=== PATIENT | female | born 1980 | race Caucasian/White ===

== ENCOUNTER 2024-02-09 12:12 | Inpatient (IN) | payer MEDICARE, OTHER ==
[2024-02-09 15:19] VITALS: BMI 31.8
[2024-02-09] MEDS ORDERED: NALOXONE (NARCAN) HCL 4 MG/0.1 ML SPRAY NS PRN (15:45)
[2024-02-09] MEDS ORDERED: MAGNESIUM HYDROX 2400MG/30ML ORAL SUSPENSION 30 ML CUP PO PRN (15:45)
[2024-02-09] MEDS ORDERED: DOCUSATE SODIUM 100 MG CAPSULE (FP) PO PRN (15:45)
[2024-02-09] MEDS ORDERED: BENZOCAINE/MENTHOL (CHLORASEPTIC ) LOZENGE MM PRN (15:45)
[2024-02-09] MEDS ORDERED: P-EPHED 60MG/TRIPROLIDI 2.5MG TABLET PO PRN (15:45)
[2024-02-09] MEDS ORDERED: BENZONATATE 200 MG CAPSULE PO PRN (15:45)
[2024-02-09] MEDS ORDERED: guaiFENesin 600 MG TABLET.ER (FP) PO PRN (15:45)
[2024-02-09] MEDS ORDERED: LOPERAMIDE HCL 2 MG CAPSULE PO PRN (15:45)
[2024-02-09] MEDS ORDERED: BISACODYL 5 MG TABLET.DR (FP) PO PRN (15:45)
[2024-02-09] MEDS ORDERED: NALOXONE HCL 0.4 MG/ML VIAL IM PRN (15:45)
[2024-02-09] MEDS ORDERED: POLYETHYLENE GLYCOL (HEALTHYLAX) 3350 17 GM PACKET PO PRN (15:45)
[2024-02-09] MEDS ORDERED: TUBERCULIN PPD 5 TU/0.1ML VIAL ID ONE (20:32)
[2024-02-09] MEDS: TUBERCULIN PPD 5 TU/0.1ML SYRINGE (IN PATIENT USE ONLY) ID ONE (22:38)
[2024-02-09] MEDS: MELATONIN 5 MG TABLETS PO SCH (22:40)
[2024-02-09] MEDS: traZODone HCL 50 MG TABLET (FP) PO ONE (22:41)
[2024-02-09] MEDS: QUEtiapine FUMARATE 200 MG TABLET PO ONE (22:41)
[2024-02-09] MEDS: THIAMINE 100 MG TABLET PO SCH (22:41)
[2024-02-09] MEDS: risperiDONE 1 MG TABLET PO ONE (22:41)
[2024-02-09] MEDS: levETIRAcetam 500 MG TABLET (FP) PO SCH (22:41)
[2024-02-09] MEDS: GABAPENTIN 300 MG CAPSULE PO ONE (22:43)
[2024-02-10] MEDS: IBUPROFEN 600 MG TABLET (FP) PO PRN (06:42)
[2024-02-10] MEDS: QUEtiapine FUMARATE 200 MG TABLET PO SCH (10:12)
[2024-02-10] MEDS: PRENATAL VITAMINS W/ FOLIC ACID TABLET (FP) PO SCH (10:13)
[2024-02-10 11:35] LABS: EPI CELLS >36 /uL (0-25.1); HYALINE CASTS 1 /uL (0-3.1); URINE APPEARANCE CLEAR; URINE BACTERIA 480 /uL (0-1359); URINE BILIRUBIN NEGATIVE (NEGATIVE); URINE COLOR YELLOW; URINE GLUCOSE (UA) NEGATIVE (NEGATIVE); URINE KETONE NEGATIVE (NEGATIVE); URINE LEUK ESTERASE 1+ (NEGATIVE); URINE NITRITE NEGATIVE (NEGATIVE); URINE PROTEIN NEGATIVE (NEGATIVE); URINE RBC 5 /uL (0-23.9); URINE UROBILINOGEN 0.2 mg/dL (0.2-1.0); URINE WBC 38 /uL (0-25.8)
[2024-02-10 11:37] LABS: HEMATOCRIT 38.1 % (32.4-45.2); HEMOGLOBIN 12.7 GM/dL (10.7-15.3); MCH 29.9 pg (25.7-33.7); MCHC 33.4 g/dl (32.0-36.0); MEAN CELL VOLUME 89.5 fl (80-96); MEAN PLT VOLUME 8.3 fl (7.5-11.1); PLATELET COUNT 236 10^3/uL (134-434); RBC 4.25 M/mm3 (3.60-5.2); RDW 15.3 % (11.6-15.6); WHITE BLOOD COUNT 4.6 K/mm3 (4.0-10.0)
[2024-02-10 11:38] LABS: POTASSIUM 4.5 mmol/L (3.5-5.1)
[2024-02-10 11:40] LABS: ALBUMIN 3.4 g/dl (3.4-5.0)
[2024-02-10 11:41] LABS: BLOOD UREA NITROGEN 14.1 mg/dL (7-18)
[2024-02-10 11:44] LABS: CREATININE 0.4 mg/dL (0.55-1.3)
[2024-02-10 11:45] LABS: TOT PROT 6.7 g/dl (6.4-8.2)
[2024-02-10 11:46] LABS: BILIRUBIN,TOTAL 0.2 mg/dL (0.2-1)
[2024-02-10 12:11] LABS: SYPHILIS W/ RPR CONF NON-REACTIVE (NONREACTIVE)
[2024-02-10] MEDS: hydrOXYzine PAMOATE 50 MG CAPSULE (FP) PO PRN (14:56)
[2024-02-10] MEDS: IBUPROFEN 400 MG TABLET (FP) PO PRN (17:34)
[2024-02-10] MEDS: MAG HYDROX/AL HYDROX/SIMETH 30 ML UNIT-DOSE CUP PO PRN (18:55)
[2024-02-10] MEDS: GABAPENTIN 300 MG CAPSULE PO SCH (21:25)
[2024-02-10] MEDS: traZODone HCL 50 MG TABLET (FP) PO SCH (21:25)
[2024-02-11] MEDS: BICTEGRAV/EMTRICIT/TENOFOV (BIKTARVY) 50-200-25 MG TABLET PO SCH (07:19)
[2024-02-11] MEDS: BACLOFEN 10 MG TABLET (FP) PO SCH (11:45)
[2024-02-11] MEDS: ZIPRASIDONE 20 MG CAPSULE PO SCH (17:19)
[2024-02-11] MEDS: SULFAMETHOXAZOLE/TRIMETHOPRIM 800MG/160MG D.S. TABLET PO SCH (21:19)
[2024-02-11] MEDS: QUEtiapine FUMARATE 100 MG TABLET (FP) PO SCH (21:20)
[2024-02-12] MEDS: NICOTINE POLACRILEX 2 MG GUM BUC PRN (07:35)
[2024-02-12] MEDS: NICOTINE 21 MG/24 HOURS TOPICAL PATCH TD SCH (10:09)
[2024-02-12] MEDS: NICOTINE POLACRILEX 2 MG LOZENGE BC PRN (10:55)
[2024-02-12] MEDS ORDERED: NICOTINE POLACRILEX 2 MG LOZENGE BC PRN (15:32)
[2024-02-12] MEDS ORDERED: NICOTINE POLACRILEX 4 MG GUM BUC PRN (15:32)
[2024-02-12] MEDS: ZIPRASIDONE 20 MG CAPSULE PO SCH (17:29)
[2024-02-13] MEDS: BICTEGRAV/EMTRICIT/TENOFOV (BIKTARVY) 50-200-25 MG TABLET PO SCH (06:03)
[2024-02-13] MEDS: NICOTINE POLACRILEX 4 MG LOZENGE BC PRN (06:06)
[2024-02-13 06:44] VITALS: RESP 18
[2024-02-13] MEDS: ZIPRASIDONE 20 MG CAPSULE PO SCH (16:49)
[2024-02-13] MEDS: traZODone HCL 100 MG TABLET (FP) PO SCH (21:20)
[2024-02-14] MEDS: TRIMETHOBENZAMIDE HCL 200MG/2ML INJ IM ONE (03:08)
[2024-02-14] MEDS: ONDANSETRON *ODT* 4 MG TABLET SL ONE (04:15)
[2024-02-14] MEDS: ZIPRASIDONE 20 MG CAPSULE PO SCH (07:10)
[2024-02-14] MEDS: ACETAMINOPHEN 325 MG TABLET (FP) PO PRN (15:39)
[2024-02-14] MEDS: traZODone HCL 100 MG TABLET (FP) PO SCH (21:17)
[2024-02-15] MEDS: ALBUTEROL SO4 HFA INHALER IH PRN (12:22)
[2024-02-15] MEDS: predniSONE 20 MG TABLET (UD) PO SCH (12:48)
[2024-02-15] MEDS: ALBUTEROL SO4 2.5/IPRATROPIUM 0.5 INH SOL 3 ML VIAL.NEB. NEB ONE (12:50)
[2024-02-15] MEDS: hydrOXYzine PAMOATE 25 MG CAPSULE (FP) PO ONE (18:38)
[2024-02-16] MEDS: ALBUTEROL SO4 2.5/IPRATROPIUM 0.5 INH SOL 3 ML VIAL.NEB. NEB PRN (05:50)
[2024-02-16 07:16] VITALS: TEMP 97.6
[2024-02-16] MEDS: ZIPRASIDONE 40 MG CAPSULE PO SCH (18:53)
[2024-02-17 09:17] VITALS: BP 109/62; PULSE 80
== END 2024-02-17 10:15 | disposition home or self-care (01) | DRG 895 ==
LOC: YASAS 12:12 → Y5N 17:07
PROVIDERS: ADMIT Allergy & Immunology; ATTEND Nurse Practitioner Psychiatric/Mental Health
PROC: HZ42ZZZ Group Counseling for Substance Abuse Treatment, Cognitive-Behavioral (ICD-10-PCS; principal; 2024-02-09)
DX: F14.20 Cocaine dependence, uncomplicated (principal); F11.20 Opioid dependence, uncomplicated; F19.282 Other psychoactive substance dependence with psychoactive substance-induced sleep disorder; F19.280 Other psychoactive substance dependence with psychoactive substance-induced anxiety disorder; N39.0 Urinary tract infection, site not specified; Z59.02 Unsheltered homelessness; F17.210 Nicotine dependence, cigarettes, uncomplicated; F25.9 Schizoaffective disorder, unspecified; F43.10 Post-traumatic stress disorder, unspecified; F41.8 Other specified anxiety disorders; Z21 Asymptomatic human immunodeficiency virus [HIV] infection status; G40.909 Epilepsy, unspecified, not intractable, without status epilepticus; M54.50 Low back pain, unspecified; G89.29 Other chronic pain; Z79.899 Other long term (current) drug therapy
CPT/HCPCS: 36415; 80053; 80177; 81003; 85027; 86780; 86803; 87086; 93005; 93010; 94640; J0475; Q0162